=== PATIENT | female | born 1945 ===

== ENCOUNTER → 2020-10-10 | Day surgery (SDC) | payer MEDICARE, OTHER ==
[~2020-10-10] MED LIST: AMLODIPINE BESYL5 MG PO; ATORVASTATIN CA40 MG PO; ISOSORBIDE MONO30 MG PO; LEVEMIR100 UNIT/1 SQ; LEVOTHYROXINE300 MCG PO; LOSARTAN-HCTZ1 EAC1 PO; NOVOLOG FL100 UNIT/1 SQ
== END | disposition home or self-care (01) ==
LOC: OR 06:10
DX: K29.50 Unspecified chronic gastritis without bleeding (principal); I10 Essential (primary) hypertension; E78.00 Pure hypercholesterolemia, unspecified; E11.9 Type 2 diabetes mellitus without complications; Z87.891 Personal history of nicotine dependence; Z80.0 Family history of malignant neoplasm of digestive organs; Z79.4 Long term (current) use of insulin; Z79.899 Other long term (current) drug therapy
CPT/HCPCS: 82962; 88342; J2001; J2704; J7040